=== PATIENT | male | born 1955 | race Two or more races ===

== ENCOUNTER 2018-02-24 18:24 | Inpatient (IN) | payer OTHER ==
[~2018-02-24] VITALS: Ht 210.8 cm; Wt 99.8 kg
[2018-02-24] MEDS ORDERED: SYMBICORT 16010.2 GM (18:40)
[2018-02-24] MEDS ORDERED: MEDROL2 MG (18:40)
[2018-02-25] MEDS ORDERED: IRBESARTAN150 MG PO (13:13)
[2018-02-25] MEDS ORDERED: SYNTHROID175 MCG PO (13:13)
[2018-02-25] MEDS ORDERED: PAXIL CR25 MG PO (13:13)
[2018-02-25] MEDS ORDERED: SINGULAIR10 MG PO (13:14)
== END 2018-03-08 13:13 | disposition home or self-care (01) | DRG 202 ==
LOC: ER 18:24 → EDBD 18:24 → ER 19:20 → MEDJ 02-25 08:45 → SEC-K 02-25 08:45 → MEDJ 02-25 13:45
PROVIDERS: ADMIT Student in an Organized Health Care Education/Training Program
PROC: BW24ZZZ Computerized Tomography (CT Scan) of Chest and Abdomen (ICD-10-PCS; principal; 2018-02-25)
PROC: 3E0F7GC Introduction of Other Therapeutic Substance into Respiratory Tract, Via Natural or Artificial Opening (ICD-10-PCS; 2018-02-25)
PROC: 4A033R1 Measurement of Arterial Saturation, Peripheral, Percutaneous Approach (ICD-10-PCS; 2018-02-25)
DX: J45.52 Severe persistent asthma with status asthmaticus (principal); J44.1 Chronic obstructive pulmonary disease with (acute) exacerbation; B37.0 Candidal stomatitis; R09.02 Hypoxemia; I10 Essential (primary) hypertension; Z88.0 Allergy status to penicillin; Z88.2 Allergy status to sulfonamides

== ENCOUNTER 2018-12-19 12:46 | Emergency (ER) | payer OTHER ==
[~2018-12-19] VITALS: Ht 182.9 cm; Wt 97.5 kg
[~2018-12-19 12:46] MED LIST: IRBESARTAN150 MG PO; MEDROL2 MG; PAXIL CR25 MG PO; SINGULAIR10 MG PO; SYMBICORT 16010.2 GM; SYNTHROID175 MCG PO
== END 2018-12-19 20:36 | disposition home or self-care (01) ==
LOC: ER 12:46
DX: J06.9 Acute upper respiratory infection, unspecified (principal)

== ENCOUNTER 2019-03-03 19:30 | Emergency (ER) | payer OTHER ==
[~2019-03-03] VITALS: Ht 182.9 cm; Wt 97.5 kg
== END 2019-03-03 23:27 | disposition home or self-care (01) ==
LOC: ER 19:30
DX: J45.998 Other asthma (principal)

== ENCOUNTER 2019-03-12 00:47 | Inpatient (IN) | payer OTHER ==
[~2019-03-12] VITALS: Ht 190.5 cm; Wt 95.3 kg
== END 2019-04-01 19:23 | disposition home or self-care (01) | DRG 202 ==
LOC: ER 00:47 → SEC-K 11:49 → MEDJ 20:09 → MEDI 03-17 10:35 → SURG 03-19 18:59 → MEDI 03-23 15:03
PROVIDERS: ADMIT Internal Medicine
PROC: 4A033R1 Measurement of Arterial Saturation, Peripheral, Percutaneous Approach (ICD-10-PCS; 2019-03-12)
PROC: 3E0F7GC Introduction of Other Therapeutic Substance into Respiratory Tract, Via Natural or Artificial Opening (ICD-10-PCS; 2019-03-12)
PROC: BB24ZZZ Computerized Tomography (CT Scan) of Bilateral Lungs (ICD-10-PCS; principal; 2019-03-26)
PROC: B54DZZZ Ultrasonography of Bilateral Lower Extremity Veins (ICD-10-PCS; 2019-03-31)
DX: J45.51 Severe persistent asthma with (acute) exacerbation (principal); A41.1 Sepsis due to other specified staphylococcus; R65.20 Severe sepsis without septic shock; L03.115 Cellulitis of right lower limb; J98.11 Atelectasis; J47.1 Bronchiectasis with (acute) exacerbation; R09.02 Hypoxemia; J20.9 Acute bronchitis, unspecified; I87.2 Venous insufficiency (chronic) (peripheral); I10 Essential (primary) hypertension; E03.8 Other specified hypothyroidism; F43.21 Adjustment disorder with depressed mood

== ENCOUNTER 2021-09-15 19:25 | Emergency (ER) | payer OTHER ==
[~2021-09-15] VITALS: Ht 182.9 cm; Wt 95.3 kg
== END 2021-09-15 22:55 | disposition home or self-care (01) ==
LOC: ER 19:25
DX: J45.909 Unspecified asthma, uncomplicated (principal); R05.9 Cough, unspecified; Z88.0 Allergy status to penicillin; Z88.2 Allergy status to sulfonamides

== ENCOUNTER 2022-10-27 21:19 | Emergency (ER) | payer OTHER ==
[~2022-10-27] VITALS: Ht 177.8 cm; Wt 81.6 kg
[2022-10-28] MEDS ORDERED: BUDESONIDE0.5 MG/2 M IH (02:19)
== END 2022-10-28 03:21 ==
LOC: ER 21:19
PROVIDERS: Emergency Medicine
DX: J22 Unspecified acute lower respiratory infection (principal); J45.909 Unspecified asthma, uncomplicated; E03.9 Hypothyroidism, unspecified; Z88.2 Allergy status to sulfonamides; Z88.0 Allergy status to penicillin; Z20.822 Contact with and (suspected) exposure to COVID-19
CPT/HCPCS: 36415; 71046; 82803; 94640; 96365; 99285; J2930

== ENCOUNTER 2023-12-18 08:33 | Emergency (ER) | payer OTHER ==
[~2023-12-18] VITALS: Ht 182.9 cm; Wt 93.0 kg
[~2023-12-18 08:33] MED LIST changes: +BUDESONIDE0.5 MG/2 M IH
[2023-12-18] MEDS ORDERED: ORPHENADRINE CITRATE 30 MG/ML AMPUL IM STA (09:01)
[2023-12-18] MEDS ORDERED: DEXAMETHASONE SODIUM PHOSPHATE 4 MG/ML VIAL IM STA (09:01)
[2023-12-18] MEDS ORDERED: KETOROLAC TROMETHAMINE 60 MG VIAL IM STA (09:01)
[2023-12-18] MEDS ORDERED: DICLOFENAC POTA50 MG PO (09:13)
[2023-12-18] MEDS ORDERED: NORFLEX100MG PO (09:13)
[2023-12-18] MEDS ORDERED: MEDROLPACK PO (09:13)
[2023-12-18 10:04] VITALS: BP 124/77; O2SAT 98
== END 2023-12-18 10:05 | disposition home or self-care (01) ==
LOC: ER 08:35
DX: M25.511 Pain in right shoulder (principal); I10 Essential (primary) hypertension; E03.8 Other specified hypothyroidism; Z88.0 Allergy status to penicillin; Z88.2 Allergy status to sulfonamides
CPT/HCPCS: 96372; 99282; J1100; J1885; J2360

== ENCOUNTER 2024-03-03 07:20 | Emergency (ER) | payer OTHER ==
[~2024-03-03] VITALS: Ht 182.9 cm; Wt 93.0 kg
[~2024-03-03 07:20] MED LIST changes: +DICLOFENAC POTA50 MG PO; +MEDROLPACK PO; +NORFLEX100MG PO
[2024-03-03 08:16] VITALS: BP 108/69; O2SAT 97
[2024-03-03] MEDS ORDERED: METHYLPREDNISOLONE SOD SUCC 125 MG VIAL IV STA (10:40)
[2024-03-03] MEDS ORDERED: 0.9 % SODIUM CHLORIDE 500 ML IV STA (10:41)
[2024-03-03] MEDS ORDERED: CEFTRIAXONE SODIUM 2,000 MG VIAL IV STA (10:42)
[2024-03-03] MEDS ORDERED: GUAIFENESIN 200 MG/10 ML BLIST.PACK PO STA (10:43)
[2024-03-03] MEDS ORDERED: LEVALBUTEROL HCL 1.25 MG/3 ML SOLUTION IH SCH (10:45)
[2024-03-03] MEDS ORDERED: BUDESONIDE 0.5 MG/2 ML AMPUL.NEB IH SCH (10:45)
[2024-03-03] MEDS ORDERED: CEFTRIAXONE SODIUM 2,000 MG VIAL ONE (11:26)
[2024-03-03] MEDS ORDERED: GUAIFENESIN 200 MG/10 ML BLIST.PACK PO ONE (11:26)
[2024-03-03] MEDS ORDERED: METHYLPREDNISOLONE SOD SUCC 125 MG VIAL ONE (11:26)
[2024-03-03] MEDS ORDERED: LEVALBUTEROL HCL 1.25 MG/3 ML SOLUTION IH ONE ×2 (12:24→14:53)
[2024-03-03] MEDS ORDERED: BUDESONIDE 0.5 MG/2 ML AMPUL.NEB IH ONE (12:24)
[2024-03-03 12:42] LABS: HEMATOCRIT 40.3 % (39.0-48.0); HEMOGLOBIN 14.3 g/dL (13-16.00); MEAN CELL VOLUME 90.2 fL (80.0-100.00); MEAN CORPUSCULAR HEMOGLOBIN 31.9 pg (27.00-32.0); MEAN CORPUSCULAR HGB CONC 35.4 g/dl (32.0-36.0); PLATELET COUNT 319 K/uL (150-450); RED BLOOD COUNT 4.46 M/uL (4.00-6.00); RED CELL DISTRIBUTION WIDTH 15.3 % (11.5-14.5)
[2024-03-03 13:01] LABS: CALCIUM 8.9 mg/dL (8.5-10.1); CREATININE SERUM 0.9 mg/dL (0.70-1.30); GFR 83.91
[2024-03-03 13:09] LABS: POTASSIUM 2.86 mEq/L (3.5-5.1)
[2024-03-03] MEDS ORDERED: POTASSIUM CHLORIDE 10 MEQ CAPSULE PO STA (13:19)
== END 2024-03-03 15:25 | disposition home or self-care (01) ==
LOC: ER 07:20
PROVIDERS: General Practice
DX: R05.8 Other specified cough (principal); Z88.0 Allergy status to penicillin; Z88.2 Allergy status to sulfonamides; J45.909 Unspecified asthma, uncomplicated; I10 Essential (primary) hypertension; Z20.822 Contact with and (suspected) exposure to COVID-19
CPT/HCPCS: 36415; 94640; 96365; 96366; 99284; J0696; J3490

== ENCOUNTER 2024-03-17 20:04 | Inpatient (IN) | payer OTHER ==
[~2024-03-17] VITALS: Ht 182.9 cm; Wt 92.5 kg
--- NOTE | 2024-03-17 20:26 | NUR ---
PTE ALETRA Y ORIENTADO X3. REFIERE TOS Y CONGESTION HACE ARLEY SEMANAS SE ALVARO SV Y SE UBICA
[2024-03-17] MEDS ORDERED: METHYLPREDNISOLONE SOD SUCC 125 MG VIAL ONE (22:15)
[2024-03-17] MEDS ORDERED: IPRATROPIUM/ALBUTEROL SULFATE 3 ML AMPUL.NEB IH SCH (22:15)
[2024-03-17] MEDS ORDERED: METHYLPREDNISOLONE SOD SUCC 125 MG VIAL IV ONE (22:15)
[2024-03-17] MEDS ORDERED: MAGNESIUM SULFATE IN WATER 50 ML IV ONE (22:15)
--- NOTE | 2024-03-17 22:31 | NUR ---
SE ORIENTA PTE SOBRE TX MEDICO EL CUAL REFIERE ENTENDER.SE EXTRAEN MUESTRAS BAJO MEDIDAS ASEPTICAS,SE CANALIZA Y SE ADMINISTRAN MEDICAMENTOS.SE NOTIFICAN ABG Y RSV A MR VANEGAS.
[2024-03-17 22:38] LABS: ABG PH 7.435 (7.35-7.45); ABG PO2 60.2 mmHg (80-100); ABG pCO2 36.7 mmHg (35-45); BASE EXCESS 0.3 mmol/l; BICARBONATE 24.1 mmol/l (23-25); SaO2 91.6 %; Tco2 25.2 mmol/l
[2024-03-17 22:39] LABS: allen test SATISFACTORY; o2 21 %; puncture site RADIAL RIGHT
[2024-03-17 23:27] LABS: HEMOGLOBIN 14.5 g/dL (13-16.00); MEAN CELL VOLUME 91.1 fL (80.0-100.00); MEAN CORPUSCULAR HEMOGLOBIN 31.5 pg (27.00-32.0); MEAN CORPUSCULAR HGB CONC 34.5 g/dl (32.0-36.0); PLATELET COUNT 365 K/uL (150-450); RED BLOOD COUNT 4.61 M/uL (4.00-6.00); RED CELL DISTRIBUTION WIDTH 15.5 % (11.5-14.5)
[2024-03-17] MEDS ORDERED: AZITHROMYCIN 500 MG in DEXTROSE 5 % IN WATER 250 ML IV SCH (23:38)
[2024-03-17] MEDS ORDERED: FLUTICASONE PROPIONATE 50 MCG SPRAY NASAL SCH (23:38)
[2024-03-17] MEDS ORDERED: MONTELUKAST SODIUM 10 MG TABLET PO SCH (23:38)
[2024-03-17] MEDS ORDERED: CEFTRIAXONE SODIUM 2,000 MG in 0.9 % SODIUM CHLORIDE 100 ML IV SCH (23:39)
[2024-03-17 23:41] LABS: ALBUMIN 3.4 gm/dL (3.4-5.0); BILIRUBIN TOTAL 0.76 mg/dL (0.3-1.2); CALCIUM 8.8 mg/dL (8.5-10.1); CREATININE SERUM 0.83 mg/dL (0.70-1.30); GFR 92.13; GLOBULINA 3.9 G/DL (2.4-3.5); POTASSIUM 3.03 mEq/L (3.5-5.1); TOTAL PROTEIN 7.3 gm/dL (6.4-8.2)
[2024-03-17] MEDS ORDERED: ACETAMINOPHEN 500 MG GEL..CAP PO PRN (23:45)
[2024-03-17] MEDS ORDERED: POTASSIUM CHLORIDE 20MEQ/100ML H2O PB IV ONE (23:45)
[2024-03-17] MEDS ORDERED: FLUTICASONE PROPIONATE 50 MCG SPRAY NASAL ONE (23:45)
[2024-03-17] MEDS ORDERED: 0.9 % SODIUM CHLORIDE 1,000 ML IV SCH (23:45)
[2024-03-18] VITALS (8 sets, daily range): BP systolic 126–151; BP diastolic 68–83; O2SAT 20–98
[2024-03-18] MEDS ORDERED: IPRATROPIUM/ALBUTEROL SULFATE 3 ML AMPUL.NEB IH ONE (00:36)
[2024-03-18] MEDS ORDERED: IPRATROPIUM BROMIDE 0.5 MG/2.5 ML AMPUL.NEB IH ONE (00:50)
[2024-03-18] MEDS ORDERED: LEVALBUTEROL HCL 1.25 MG/3 ML SOLUTION IH ONE (00:50)
[2024-03-18] MEDS ORDERED: GUAIFEN/DEXTROMETHORPHAN/PE 10 ML BLIST.PACK PO SCH (01:00)
[2024-03-18] MEDS ORDERED: METHYLPREDNISOLONE SOD SUCC 40 MG VIAL IV SCH (01:00)
[2024-03-18] MEDS ORDERED: IPRATROPIUM BROMIDE 0.5 MG/2.5 ML AMPUL.NEB IH SCH (01:00)
[2024-03-18] MEDS ORDERED: LEVALBUTEROL HCL 1.25 MG/3 ML SOLUTION IH SCH (01:00)
[2024-03-18 02:30] LABS: INR 1.15; PARTIAL THROMBOPLASTIN TIME 37.7 SECONDS (22.0-34.0); PROTHROMBIN TIME 12.4 SECONDS (9.0-11.5)
[2024-03-18] MEDS ORDERED: LEVOTHYROXINE SODIUM 150 MCG TABLET PO SCH (06:00)
[2024-03-18] MEDS ORDERED: IRBESARTAN 300 MG TABLET PO SCH (09:00)
[2024-03-18] MEDS ORDERED: FAMOTIDINE/PF 20 MG in 0.9 % SODIUM CHLORIDE 8 ML IV PUSH SCH (09:00)
[2024-03-18] MEDS ORDERED: AMLODIPINE BESYLATE 2.5 MG TABLET PO SCH (09:00)
[2024-03-18] MEDS ORDERED: ENOXAPARIN SODIUM 40 MG/0.4 ML SYRINGE SUBCUTANEO SCH (09:00)
[2024-03-18] MEDS ORDERED: POTASSIUM CHLORIDE 20MEQ/100ML H2O PB IV SCH (11:00)
[2024-03-18 13:59] LABS: URINE APPEARANCE Clear; URINE BILIRRUBIN Negative (NEGATIVE); URINE BLOOD Negative; URINE COLOR Yellow; URINE GLUCOSE Negative (NEGATIVE); URINE KETONE Negative (NEGATIVE); URINE LEUKOCYTE Negative; URINE NITRATE Negative; URINE PROTEIN Negative (NEGATIVE); URINE UROBILINOGEN 0.2 E.U./dl
[2024-03-18 14:03] LABS: URINE RBC 4.4 uL (0.0-20.8)
[2024-03-18 14:20] LABS: URINE BACTERIA 1.2 uL (0.0-1933); URINE CAST 0.14 uL (0.0-1.40); URINE EPITHELIAL CELLS 0.1 uL (0.0-38.8)
[2024-03-19] VITALS (8 sets, daily range): BP systolic 127–157; BP diastolic 77–90; O2SAT 90–97
[2024-03-19 06:16] LABS: HEMATOCRIT 38.8 % (39.0-48.0); HEMOGLOBIN 13.3 g/dL (13-16.00); MEAN CORPUSCULAR HEMOGLOBIN 31.6 pg (27.00-32.0); MEAN CORPUSCULAR HGB CONC 34.4 g/dl (32.0-36.0); PLATELET COUNT 358 K/uL (150-450); RED BLOOD COUNT 4.22 M/uL (4.00-6.00); RED CELL DISTRIBUTION WIDTH 15.5 % (11.5-14.5)
[2024-03-19 06:48] LABS: ALBUMIN 3.3 gm/dL (3.4-5.0); ALKALINE PHOSPHATASE 60 U/L (50-136); ALT/SGPT 36 U/L (12-78); ANION GAP 12 (10.0-20.0); AST/SGOT 38 U/L (15-37); BILIRUBIN TOTAL 0.57 mg/dL (0.3-1.2); BLOOD UREA NITROGEN 16 mg/dL (7-18); BUN CREA RATIO 22 (7.0-25.0); CALCIUM 8.9 mg/dL (8.5-10.1); CARBON DIOXIDE 25 mEq/L (21-32); CHLORIDE 109 mmol/L (98-107); CREATININE SERUM 0.74 mg/dL (0.70-1.30); GFR 105.18; GLUCOSE FASTING 123 mg/dL (65-100); OSMOLALITY SERUM 286 MOSM/KG (275-295); POTASSIUM 3.68 mEq/L (3.5-5.1); SODIUM 142 mmol/L (136-145); TOTAL PROTEIN 6.3 gm/dL (6.4-8.2)
[2024-03-19 06:52] LABS: C-REACTIVE PROTEIN < 0.29 MG/DL (0.00-0.29)
[2024-03-19] MEDS ORDERED: AZITHROMYCIN 500 MG VIAL IV ONE (08:10)
[2024-03-19] MEDS ORDERED: AZITHROMYCIN 500 MG VIAL IV SCH ×2 (09:00)
[2024-03-19] MEDS ORDERED: FAMOTIDINE/PF 20 MG in 0.9 % SODIUM CHLORIDE 8 ML IV PUSH SCH (21:00)
[2024-03-20] VITALS (9 sets, daily range): BP systolic 128–147; BP diastolic 73–87; O2SAT 90–99
[2024-03-20] MEDS ORDERED: AZITHROMYCIN 500 MG VIAL IV ONE (08:44)
[2024-03-20] MEDS ORDERED: LORATADINE 10 MG TABLET PO SCH (09:00)
[2024-03-21] VITALS (7 sets, daily range): BP systolic 125–143; BP diastolic 76–80; O2SAT 93–96
[2024-03-21] MEDS ORDERED: AZITHROMYCIN 500 MG VIAL IV ONE (07:57)
[2024-03-22] VITALS (8 sets, daily range): BP systolic 135–149; BP diastolic 83–86; O2SAT 88–96
[2024-03-22] MEDS ORDERED: AZITHROMYCIN 500 MG VIAL IV ONE (08:19)
[2024-03-22 10:55] LABS: HEMATOCRIT 40.6 % (39.0-48.0); HEMOGLOBIN 13.9 g/dL (13-16.00); MEAN CELL VOLUME 91.8 fL (80.0-100.00); MEAN CORPUSCULAR HEMOGLOBIN 31.5 pg (27.00-32.0); MEAN CORPUSCULAR HGB CONC 34.3 g/dl (32.0-36.0); PLATELET COUNT 315 K/uL (150-450); RED BLOOD COUNT 4.42 M/uL (4.00-6.00); RED CELL DISTRIBUTION WIDTH 15.6 % (11.5-14.5)
[2024-03-22 11:48] LABS: CALCIUM 9.3 mg/dL (8.5-10.1); CREATININE SERUM 0.78 mg/dL (0.70-1.30); GFR 98.98; POTASSIUM 3.73 mEq/L (3.5-5.1)
[2024-03-23] VITALS (8 sets, daily range): BP systolic 138–157; BP diastolic 82–89; O2SAT 90–98
[2024-03-23] MEDS ORDERED: AZITHROMYCIN 500 MG VIAL IV ONE (08:23)
[2024-03-23] MEDS ORDERED: METHYLPREDNISOLONE SOD SUCC 40 MG VIAL IV SCH (21:00)
[2024-03-23] MEDS ORDERED: CLONAZEPAM 0.5 MG TABLET PO SCH (21:00)
[2024-03-24] VITALS (8 sets, daily range): BP systolic 146–151; BP diastolic 83–92; O2SAT 90–96
[2024-03-24 08:53] LABS: HEMATOCRIT 40.3 % (39.0-48.0); HEMOGLOBIN 14.1 g/dL (13-16.00); MEAN CELL VOLUME 91.6 fL (80.0-100.00); PLATELET COUNT 296 K/uL (150-450); RED CELL DISTRIBUTION WIDTH 15.8 % (11.5-14.5)
[2024-03-24] MEDS ORDERED: CODEINE PHOSPHATE/GUAIFENESIN 5 ML ML PO SCH (18:00)
[2024-03-25 02:26] VITALS: BP 123/74; O2SAT 96
[2024-03-25 04:56] VITALS: O2SAT 95
[2024-03-25 08:41] VITALS: O2SAT 96
[2024-03-25 09:14] VITALS: BP 129/62; O2SAT 100
== END 2024-03-25 11:20 | disposition home or self-care (01) | DRG 203 ==
LOC: ER 20:06 → MEDJ 23:41
PROVIDERS: Emergency Medicine; General Practice; Internal Medicine Infectious Disease; Preventive Medicine Public Health & General Preventive Medicine; ADMIT Student in an Organized Health Care Education/Training Program; ATTEND Student in an Organized Health Care Education/Training Program
PROC: BB24ZZZ Computerized Tomography (CT Scan) of Bilateral Lungs (ICD-10-PCS; principal; 2024-03-17)
PROC: 3E0F7GC Introduction of Other Therapeutic Substance into Respiratory Tract, Via Natural or Artificial Opening (ICD-10-PCS; 2024-03-18)
PROC: 4A12X4Z Monitoring of Cardiac Electrical Activity, External Approach (ICD-10-PCS; 2024-03-18)
DX: J45.41 Moderate persistent asthma with (acute) exacerbation (principal); D72.828 Other elevated white blood cell count; E87.6 Hypokalemia; I10 Essential (primary) hypertension; E03.8 Other specified hypothyroidism; R09.02 Hypoxemia; Z88.0 Allergy status to penicillin; Z88.2 Allergy status to sulfonamides

== ENCOUNTER 2025-01-20 12:23 | Emergency (ER) | payer OTHER ==
[~2025-01-20] VITALS: Ht 182.9 cm; Wt 88.5 kg
[2025-01-20] MEDS ORDERED: BENZONATATE 200 MG CAPSULE PO ONE (13:15)
[2025-01-20] MEDS ORDERED: LEVALBUTEROL HCL 1.25 MG/3 ML SOLUTION IH SCH (13:15)
[2025-01-20] MEDS ORDERED: METHYLPREDNISOLONE SOD SUCC 125 MG VIAL IV ONE (13:15)
[2025-01-20] MEDS ORDERED: IPRATROPIUM BROMIDE 0.5 MG/2.5 ML AMPUL.NEB IH SCH (13:15)
[2025-01-20 13:52] LABS: BASO % 0.4 % (0.1-1.2); EOS # 0.17 (0.04-0.54); EOS % 1.7 % (0.7-7.0); LYMPH # 0.92 (1.18-3.74); LYMPH % 9.2 % (19.3-53.1); MEAN PLATELET VOLUME 8.50 fl (9.4-12.4); MONO # 0.94 (0.24-0.82); MONO % 9.4 % (4.7-12.5); NEUT # 7.88 (1.56-6.13); NEUT % 79.0 % (34.0-71.1); RED CELL DISTRIBUTION WIDTH 15.4 % (11.6-14.4)
[2025-01-20 14:03] LABS: COVID-19 AG NEGATIVE (NEGATIVE)
[2025-01-20] MEDS ORDERED: IPRATROPIU0.2 MG/1 M IH (14:34)
[2025-01-20] MEDS ORDERED: AZITHROMYCIN250 MG PO (14:34)
[2025-01-20] MEDS ORDERED: BENZONATATE200 M1 PO (14:34)
== END 2025-01-20 14:48 | disposition home or self-care (01) ==
LOC: ER 12:24
PROVIDERS: General Practice
DX: J45.41 Moderate persistent asthma with (acute) exacerbation (principal); Z20.822 Contact with and (suspected) exposure to COVID-19; I10 Essential (primary) hypertension; E03.9 Hypothyroidism, unspecified; Z88.0 Allergy status to penicillin; Z88.2 Allergy status to sulfonamides

== ENCOUNTER 2025-01-25 07:14 | Inpatient (IN) | payer OTHER ==
[~2025-01-25] VITALS: Ht 182.9 cm; Wt 90.7 kg
[~2025-01-25 07:14] MED LIST changes: +AZITHROMYCIN250 MG PO; +BENZONATATE200 M1 PO; +IPRATROPIU0.2 MG/1 M IH
--- NOTE | 2025-01-25 08:06 | NUR ---
PACIENTE ALERTA Y ORIENTADO POR 3, ACOMPANADO POR KATE FAMILIAR, REFIERE DIFICULTAD RESPIRATORIA, SE LE REALIZA EKG Y SE LE MONROE S/V Y SE UBICA PARA SER REVALUADO.
[2025-01-25] MEDS ORDERED: 0.9 % SODIUM CHLORIDE 1,000 ML IV STA (08:12)
[2025-01-25] MEDS ORDERED: ALBUTEROL SULFATE 3 ML/2.5 MG AMPUL.NEB IH SCH (08:15)
[2025-01-25] MEDS ORDERED: AZITHROMYCIN 500 MG VIAL IV ONE (08:15)
[2025-01-25] MEDS ORDERED: IPRATROPIUM BROMIDE 0.5 MG/2.5 ML AMPUL.NEB IH SCH ×2 (08:15→13:00)
[2025-01-25] MEDS ORDERED: BENZONATATE 200 MG CAPSULE PO ONE (08:15)
[2025-01-25] MEDS ORDERED: METHYLPREDNISOLONE SOD SUCC 125 MG VIAL IV ONE (08:15)
[2025-01-25 09:16] LABS: BASO % 0.4 % (0.1-1.2); EOS # 0.36 (0.04-0.54); EOS % 3.5 % (0.7-7.0); LYMPH # 0.98 (1.18-3.74); LYMPH % 9.5 % (19.3-53.1); MEAN PLATELET VOLUME 8.70 fl (9.4-12.4); MONO # 0.82 (0.24-0.82); MONO % 7.9 % (4.7-12.5); NEUT # 8.11 (1.56-6.13); NEUT % 78.3 % (34.0-71.1); RED CELL DISTRIBUTION WIDTH 15.8 % (11.6-14.4)
[2025-01-25 09:26] LABS: ERYTHROCYTE SEDIMENTATION RATE 40 mm/hr (0-20)
--- NOTE | 2025-01-25 09:37 | NUR ---
SE EDUCA ACERCA DE TX ORDENADO Y REFIERE ENTENDER, SE CANALIZA Y COLECTAN MUESTRAS DE LABORATORIO MEDIANTE MEDIDAS ASEPTICAS. SE ADMINISTRAN MEDICAMENTOS HONEY ORDEN MEDICA.
[2025-01-25 09:44] LABS: BUN CREA RATIO 14.0 (7.0-25.0); CREATININE SERUM 0.79 mg/dL (0.70-1.30); GFR 97.25; GLUCOSE FASTING 119.0 mg/dL (65-100); OSMOLALITY SERUM 280.0 MOSM/KG (275-295)
[2025-01-25 10:18] LABS: COVID-19 AG NEGATIVE (NEGATIVE)
[2025-01-25] MEDS ORDERED: POTASSIUM CHLORIDE/D5-0.9%NACL 40 MEQ/1,000 ML PIGGYBAG IV ONE (12:30)
[2025-01-25] MEDS ORDERED: levoFLOXacin IN DEXTROSE 5 % 150 ML IV SCH (12:42)
[2025-01-25] MEDS ORDERED: METHYLPREDNISOLONE SOD SUCC 40 MG VIAL IV SCH (12:42)
[2025-01-25] MEDS ORDERED: AMLODIPINE BESYLATE 5 MG TABLET PO SCH (12:43)
[2025-01-25] MEDS ORDERED: ACETAMINOPHEN 500 MG GEL..CAP PO PRN (12:45)
[2025-01-25] MEDS ORDERED: 0.9 % SODIUM CHLORIDE 1,000 ML IV SCH (12:45)
[2025-01-25] MEDS ORDERED: POTASSIUM CHLORIDE IN WATER 100 ML IV SCH (13:00)
[2025-01-25] MEDS ORDERED: MAGNESIUM SULFATE 1,000 MG in 0.9 % SODIUM CHLORIDE 50 ML IV ONE (13:00)
[2025-01-25] MEDS ORDERED: LEVALBUTEROL HCL 1.25 MG/3 ML SOLUTION IH SCH (13:00)
[2025-01-25] MEDS ORDERED: GUAIFEN/DEXTROMETHORPHAN/PE 10 ML BLIST.PACK PO SCH (13:00)
[2025-01-25] MEDS ORDERED: METHYLPREDNISOLONE SOD SUCC 40 MG VIAL ONE (15:27)
[2025-01-25] MEDS ORDERED: POTASSIUM CHLORIDE 20MEQ/100ML H2O PB IV ONE (15:27)
[2025-01-25] MEDS ORDERED: GUAIFEN/DEXTROMETHORPHAN/PE 10 ML BLIST.PACK PO ONE (15:27)
[2025-01-25] MEDS ORDERED: levoFLOXacin IN DEXTROSE 5 % 5 MG/ML PIGGYBAG IV ONE (15:27)
[2025-01-25] MEDS ORDERED: IPRATROPIUM BROMIDE 0.5 MG/2.5 ML AMPUL.NEB IH ONE ×2 (16:21→19:38)
[2025-01-25] MEDS ORDERED: LEVALBUTEROL HCL 1.25 MG/3 ML SOLUTION IH ONE (16:21)
[2025-01-25] MEDS ORDERED: LEVALBUTEROL HCL 0.63 MG/3 ML SOLUTION IH ONE (19:38)
[2025-01-25 19:42] VITALS: BP 130/90
[2025-01-25 23:30] VITALS: BP 124/74; O2SAT 96
[2025-01-26] MEDS ORDERED: METHYLPREDNISOLONE SOD SUCC 40 MG VIAL ONE (00:34)
[2025-01-26] MEDS ORDERED: GUAIFEN/DEXTROMETHORPHAN/PE 10 ML BLIST.PACK PO ONE ×2 (00:34→05:07)
[2025-01-26] MEDS ORDERED: LEVALBUTEROL HCL 0.63 MG/3 ML SOLUTION IH ONE ×5 (01:54→22:01)
[2025-01-26] MEDS ORDERED: IPRATROPIUM BROMIDE 0.5 MG/2.5 ML AMPUL.NEB IH ONE ×5 (01:54→22:01)
[2025-01-26 05:24] LABS: INR 1.26
[2025-01-26 05:37] LABS: TSH 0.45 uIU/mL (0.358-3.74)
[2025-01-26] MEDS ORDERED: LEVOTHYROXINE SODIUM 150 MCG TABLET PO SCH (06:00)
[2025-01-26 07:30] VITALS: BP 117/79; O2SAT 100
[2025-01-26 08:36] LABS: BASO % 0.1 % (0.1-1.2); EOS # 0.00 (0.04-0.54); EOS % 0.0 % (0.7-7.0); LYMPH # 0.78 (1.18-3.74); LYMPH % 8.2 % (19.3-53.1); MEAN PLATELET VOLUME 8.50 fl (9.4-12.4); MONO # 0.32 (0.24-0.82); MONO % 3.4 % (4.7-12.5); NEUT # 8.30 (1.56-6.13); NEUT % 87.7 % (34.0-71.1); RED CELL DISTRIBUTION WIDTH 15.9 % (11.6-14.4)
[2025-01-26] MEDS ORDERED: IRBESARTAN 150 MG TABLET PO SCH (09:00)
[2025-01-26] MEDS ORDERED: LACTOBACILLUS ACIDOPHILUS 1 CAP CAP PO SCH (09:00)
[2025-01-26] MEDS ORDERED: ENOXAPARIN SODIUM 40 MG/0.4 ML SYRINGE SUBCUTANEO SCH (09:00)
[2025-01-26 09:20] LABS: LDH 249.0 U/L (87-241)
[2025-01-26] MEDS ORDERED: LACTOBACILLUS ACIDOPHILUS 1 CAP CAP PO ONE (10:05)
[2025-01-26] MEDS ORDERED: BUDESONIDE 0.5 MG/2 ML AMPUL.NEB IH SCH (10:30)
[2025-01-26] MEDS ORDERED: POTASSIUM CHLORIDE 10 MEQ CAPSULE PO SCH (12:00)
[2025-01-26] MEDS ORDERED: SODIUM CHLORIDE FOR INHALATION 1 VIAL.NEB IH SCH (13:44)
[2025-01-27] MEDS ORDERED: IPRATROPIUM BROMIDE 0.5 MG/2.5 ML AMPUL.NEB IH ONE ×2 (00:45→08:32)
[2025-01-27] MEDS ORDERED: LEVALBUTEROL HCL 1.25 MG/3 ML SOLUTION IH ONE ×2 (00:45→08:32)
[2025-01-27 01:51] VITALS: BP 96/51; O2SAT 99
[2025-01-27] MEDS ORDERED: GUAIFEN/DEXTROMETHORPHAN/PE 10 ML BLIST.PACK PO ONE (02:31)
[2025-01-27] MEDS ORDERED: METHYLPREDNISOLONE SOD SUCC 40 MG VIAL ONE (02:31)
[2025-01-27] MEDS ORDERED: SODIUM CHLORIDE FOR INHALATION 1 VIAL.NEB IH ONE (08:32)
[2025-01-27] MEDS ORDERED: BUDESONIDE 0.5 MG/2 ML AMPUL.NEB IH ONE (08:32)
[2025-01-27 11:14] LABS: BUN CREA RATIO 13.0 (7.0-25.0); CREATININE SERUM 0.89 mg/dL (0.70-1.30); GFR 84.75; GLUCOSE FASTING 183.0 mg/dL (65-100); OSMOLALITY SERUM 293.0 MOSM/KG (275-295)
[2025-01-27 13:41] VITALS: BP 135/79; O2SAT 98
[2025-01-27 16:16] VITALS: BP 133/82; O2SAT 98
[2025-01-27] MEDS ORDERED: BENZONATATE 200 MG CAPSULE PO SCH (17:00)
[2025-01-27] MEDS ORDERED: BENZONATATE 100 MG CAPSULE PO ONE (17:06)
[2025-01-27 18:14] VITALS: BP 108/74
[2025-01-27 19:53] VITALS: BP 109/65
[2025-01-28 02:39] VITALS: BP 114/73; O2SAT 97
[2025-01-28 08:39] VITALS: BP 114/80; O2SAT 95
[2025-01-28 18:48] VITALS: BP 126/66; O2SAT 96
[2025-01-28] MEDS ORDERED: CLONAZEPAM 0.5 MG TABLET PO SCH (21:00)
[2025-01-29 02:34] VITALS: BP 122/78; O2SAT 97
[2025-01-29 09:31] VITALS: BP 121/77; O2SAT 98
[2025-01-29 17:52] VITALS: BP 120/72; O2SAT 96
[2025-01-30 02:17] VITALS: BP 120/78; O2SAT 91
[2025-01-30 09:22] VITALS: BP 132/80; O2SAT 93
[2025-01-30 18:14] VITALS: BP 126/80; O2SAT 98
[2025-01-30] MEDS ORDERED: METHYLPREDNISOLONE SOD SUCC 40 MG VIAL IV SCH (18:56)
[2025-01-31 03:14] VITALS: BP 116/60; O2SAT 93
[2025-01-31 06:11] LABS: BASO % 0.3 % (0.1-1.2); EOS # 0.00 (0.04-0.54); EOS % 0.0 % (0.7-7.0); LYMPH # 1.12 (1.18-3.74); LYMPH % 8.2 % (19.3-53.1); MEAN PLATELET VOLUME 8.70 fl (9.4-12.4); MONO # 1.23 (0.24-0.82); MONO % 9.0 % (4.7-12.5); NEUT # 10.58 (1.56-6.13); NEUT % 77.0 % (34.0-71.1); RED CELL DISTRIBUTION WIDTH 16.5 % (11.6-14.4)
[2025-01-31 06:32] LABS: BUN CREA RATIO 22.0 (7.0-25.0); CREATININE SERUM 0.54 mg/dL (0.70-1.30); GFR 150.86; GLUCOSE FASTING 126.0 mg/dL (65-100); OSMOLALITY SERUM 284.0 MOSM/KG (275-295)
[2025-01-31 07:29] LABS: LYMPHOCYTE MAN 13.0 %; MONOCYTE MAN 2.0 %; NEUTROPHILS MAN 85.0 %
[2025-01-31 11:24] VITALS: BP 110/63; O2SAT 92
== END 2025-01-31 13:20 | disposition home or self-care (01) | DRG 194 ==
LOC: ER 07:14 → SEC-K 13:20 → MEDJ 01-27 16:15
PROVIDERS: General Practice; Internal Medicine; Internal Medicine Infectious Disease; ADMIT Internal Medicine; ATTEND Internal Medicine
PROC: BB24ZZZ Computerized Tomography (CT Scan) of Bilateral Lungs (ICD-10-PCS; principal; 2025-01-25)
PROC: 3E0F7GC Introduction of Other Therapeutic Substance into Respiratory Tract, Via Natural or Artificial Opening (ICD-10-PCS; 2025-01-25)
DX: J18.9 Pneumonia, unspecified organism (principal); J45.41 Moderate persistent asthma with (acute) exacerbation; R09.02 Hypoxemia; E87.6 Hypokalemia; E03.9 Hypothyroidism, unspecified; I10 Essential (primary) hypertension